=== PATIENT | male | born 1935 | race Caucasian/White ===

== ENCOUNTER 2016-11-06 18:17 | Emergency (ER) | payer MEDICARE, BC ==
[~2016-11-06 18:17] MED LIST: SYNTHROID50 MCG PO
== END 2016-11-06 20:05 | disposition home or self-care (01) ==
LOC: ER1 18:17
DX: Z48.817 Encounter for surgical aftercare following surgery on the skin and subcutaneous tissue (principal); I10 Essential (primary) hypertension; E78.5 Hyperlipidemia, unspecified; Z87.891 Personal history of nicotine dependence; Z79.82 Long term (current) use of aspirin; Z79.899 Other long term (current) drug therapy
CPT/HCPCS: 99283

== ENCOUNTER 2020-07-06 13:18 | Inpatient (IN) | payer MEDICARE, BC ==
[~2020-07-06] VITALS: Ht 193 cm; Wt 95.3 kg
[~2020-07-06 13:18] MED LIST changes: +AMLODIPINE BESY10 MG PO; +ARICEPT23 MG PO; +CELEXA20 MG PO; +DONEPEZIL HCL5 MG PO; +HYDROCHLOROTHIA25 MG PO; +K-DUR TAB 20 M20 MEQ PO; +LIPITOR TAB 2020 MG PO; +SYNTHROID100 MCG PO; -SYNTHROID50 MCG PO
[2020-07-06 15:32] LABS: HEMOGLOBIN 16.1 gm/dl (14.0-17.5); RED BLOOD COUNT 5.18 M/UL (4.20-5.50); WHITE BLOOD COUNT 9.5 K/UL (4.5-11.0)
[2020-07-07 04:18] LABS: HEMOGLOBIN 13.8 gm/dl (14.0-17.5); RED BLOOD COUNT 4.55 M/UL (4.20-5.50); WHITE BLOOD COUNT 6.2 K/UL (4.5-11.0)
[2020-07-07 04:39] LABS: BUN/CREATININE RATIO 25 (0-10)
[2020-07-07] MEDS ORDERED: HYDROCHLOROTH12.5 M1 PO (17:34)
[2020-07-07] MEDS ORDERED: ARICEPT10 MG PO (17:34)
[2020-07-07] MEDS ORDERED: ASPIRIN CHEWABL81 MG PO (17:35)
[2020-07-07] MEDS ORDERED: BUSPAR 10MG10 MG PO (17:36)
[2020-07-07] MEDS ORDERED: IMODIUM CAP 2 MG2 MG PO (17:36)
[2020-07-07] MEDS ORDERED: CENTRUM SILVER1 EAC2 PO (17:37)
--- NOTE | 2020-07-07 18:36 | NUR ---
CONTACTED DR. CASILLAS D/T CONFLICTING INFORMATION R/T RESUSCITATION STATUS. DR. CASILLAS STATED IF WE DID NOT HAVE A LEGAL DOCUMENT WITH JUDGES SIGNATURE TO CONSIDER PATIENT FULL CODE, AND HE ASKED A STONE CARRIAGE OPERATOR TO LOOK INTO THE MATTER.
[2020-07-08 03:46] LABS: HEMOGLOBIN 15.2 gm/dl (14.0-17.5); RED BLOOD COUNT 4.96 M/UL (4.20-5.50); WHITE BLOOD COUNT 6.4 K/UL (4.5-11.0)
[2020-07-08 04:03] LABS: BUN/CREATININE RATIO 30 (0-10)
--- NOTE | 2020-07-08 17:52 | NUR ---
CONTACTED DANNY ROGERS R/T DURABLE POWER OF ADDICTION PROFESSIONAL PAPER. INSTRUCTED HER THAT PATIENTS PRIMARY PHYSICIAN WOULD HAVE TO PROVIDE DOCUMENTATION STATING THAT PATIENT IS DISABLED OR HAS A DISABILITY DUE TO FORM STATING "THIS DURABLE POWER OF ADDICTION PROFESSIONAL SHALL NOT TAKE EFFECT UNLESS IT SHALL HAVE FIRST BEEN CERTIFIED BY MY THEN ATTENDING PHYSICIAN THAT I HAVE BECOME DISABLED, SAID "DISABILITY" BEING DEFINED A SUBSTANTIAL IMPAIRMENT OF MY ABILITY TO CARE FOR MYSELF AND MY PROPERTY BY REASON OF AGE, ILLNESS, INFIRMITY, OR MENTAL WEAKNESS. SHE STATED THAT SHE "WILL CONTACT HIS PRIMARY DOCTOR TOMORROW".
[2020-07-09] MEDS ORDERED: DECADRON6 MG PO (10:42)
[2020-07-09] MEDS ORDERED: PROVENTIL HFA6.7 GM INH (10:42)
--- NOTE | 2020-07-09 15:07 | NUR ---
PT EXPERIENCING CONFUSION AND DOES NOT SEEM TO BE IN FULL RIGHT OF MIND TO SIGN FOR HIMSELF FOR THE DISCHARGE. I TRIED TO CONTACT THE HOSPITALIST TO NOTIFY THE CONCERN WITH N O SUCCESS. UNABLE TO GET A HOLD OF THE SALES CORRESPONDENT.
--- NOTE | 2020-07-09 16:27 | NUR ---
TRIED CALL MD AGAIN WITH NO SUCCESS. PT IS CONFUSED TO PLACE AND TIME AND DOES NOT SEEM TO BE OF ABLE MIND TO SIGN HIMSELF OUT FOR THIS DISCHARGE. PT CAREGIVER HAS BEEN IN CONTACT WITH THE PT PCP AND IS REQUESTING TIME TO FIGURE OUT PLACEMENT BECAUSE THE PT LIVES ALONE AND DOES NOT HAVE SOMEONE THERE TO PROVIDE CARE EXCEPT FOR A FEW HOURS A DAY. UNABLE TO GET AHOLD OF SHOP FITTER TO EXPLAIN THE SITUATION. [employer] IS AWARE.
[2020-07-11] MEDS ORDERED: DECADRON6 MG PO (13:17)
== END 2020-07-11 20:42 | DRG 177 ==
LOC: ER1 13:18 → CDU 16:38 → M/S 16:38
PROVIDERS: Physician Assistant; ADMIT Internal Medicine Infectious Disease
PROC: XW033E5 Introduction of Remdesivir Anti-infective into Peripheral Vein, Percutaneous Approach, New Technology Group 5 (ICD-10-PCS; 2020-07-06)
PROC: 8E0ZXY6 Isolation (ICD-10-PCS; 2020-07-06)
PROC: XW13325 Transfusion of Convalescent Plasma (Nonautologous) into Peripheral Vein, Percutaneous Approach, New Technology Group 5 (ICD-10-PCS; principal; 2020-07-08)
DX: U07.1 COVID-19 (principal); J12.82 Pneumonia due to coronavirus disease 2019; J96.01 Acute respiratory failure with hypoxia; E03.9 Hypothyroidism, unspecified; I10 Essential (primary) hypertension; E78.5 Hyperlipidemia, unspecified; G30.1 Alzheimer's disease with late onset; F02.80 Dementia in other diseases classified elsewhere, unspecified severity, without behavioral disturbance, psychotic disturbance, mood disturbance, and anxiety; Z95.0 Presence of cardiac pacemaker; Z80.3 Family history of malignant neoplasm of breast; Z79.82 Long term (current) use of aspirin; Z79.890 Hormone replacement therapy; Z79.899 Other long term (current) drug therapy
CPT/HCPCS: 36415; 36600; 71045; 80053; 82803; 83605; 83735; 85025; 85379; 85610; 86900; 86901; 86927; 87040; 93005; 94640; 94664; 94760; 96365; 96366; 96368; 96375; 97166; 99285; J0456; J0696; J1100; J1650; J7030; J7120; U0002